=== PATIENT | male | born 1945 | race Caucasian/White ===

== ENCOUNTER 2017-01-16 20:17 | Emergency (ER) | payer MEDICARE ==
[2017-01-16 20:22] VITALS: RESP 18
[2017-01-16] MEDS ORDERED: SODIUM CHLORIDE 0.9% 500 ML IV STA (20:47)
[2017-01-16] MEDS ORDERED: MORPHINE SULFATE 4 MG/ML SYRINGE IV STA (20:47)
[2017-01-16] MEDS ORDERED: ONDANSETRON 4 MG/2 ML VIAL IVP STA (20:47)
[2017-01-16] MEDS ORDERED: RX INFO: IV CONTRAST WAS GIVEN 1 EACH MISC MISCELLANE PRN (21:16)
[2017-01-16 21:17] LABS: Basophils % (A) 1 %; CH 30.3; CHCM 34.6; Eosinophils # (A) 0.1 k/uL (0-0.7); Eosinophils % (A) 3 %; HCT 41.8 % (39.0-53.0); HGB 14.3 gm/dL (13.0-17.5); Luc # (Auto) 0.11; Luc % (Auto) 2; Lymphocytes # (A) 1.3 k/uL (1.0-4.8); Lymphocytes % (A) 26 %; MCHC 34.1 g/dL (31.0-37.0); MCV 87.9 fL (80.0-100.0); Mean Platelet Volume 8.3; Monocytes # (A) 0.3 k/uL (0-1.0); Monocytes % (A) 6 %; Neutrophils # (A) 3.2 k/uL (1.3-7.7); Neutrophils % (A) 63 %; RBC 4.75 m/uL (4.30-5.90); WBC 5.1 k/uL (3.8-10.6); WBC (Perox) 5.21
[2017-01-16 21:26] LABS: ALT 36 U/L (21-72); AST 27 U/L (17-59); Alkaline Phosphatase 71 U/L (38-126); Amylase 43 U/L (30-110); Anion Gap 10 mmol/L; Blood Urea Nitrogen 18 mg/dL (9-20); Calcium 8.9 mg/dL (8.4-10.2); Carbon Dioxide 25 mmol/L (22-30); Chloride 106 mmol/L (98-107); Glucose 127 mg/dL (74-99); Non-African American GFR(MDRD) >60 (>60 ml/min/1.73 sqM); Potassium 3.8 mmol/L (3.5-5.1); Sodium 141 mmol/L (137-145); Total Bilirubin 0.4 mg/dL (0.2-1.3); Total Protein 5.8 g/dL (6.3-8.2)
--- NOTE | 2017-01-16 21:27 | ED ---
General Adult HPI - General Chief complaint: Urogenital Stated complaint: groin pain Time Seen by Provider: 01/16/17 20:31 Source: patient, family Mode of arrival: ambulatory Limitations: no limitations - History of Present Illness Initial comments: 71-year-old male patient presents to emergency department today for complaints of left lower quadrant abdominal pain that started shortly after eating dinner this evening. Patient states that the pain is sharp in nature, is constant, and does not radiate. Patient states that he has urinated and has had a bowel movement since the pain started and both were normal. He denies hematuria, dysuria, urinary urgency or frequency. He denied any constipation, diarrhea, dark, bloody, or black stool. He denies any fever or chills. Patient denies any history of similar pain. - Related Data Home Medications Medication Instructions Recorded Confirmed Atorvastatin [Lipitor] 20 mg PO HS 06/10/15 01/16/17 Valsartan/Hydrochlorothiazide 1 tab PO DAILY 06/10/15 01/16/17 [Diovan Hct 160-12.5 mg Tab] Albuterol Inhaler [Ventolin Hfa 1 - 2 puff INHALATION RT-QID PRN 01/16/17 Inhaler] Aspirin EC [Ecotrin Low Dose] 81 mg PO DAILY 01/16/17 01/16/17 DULoxetine HCL [Cymbalta] 60 mg PO DAILY 01/16/17 01/16/17 Allergies Allergy/AdvReac Type Severity Reaction Status Date / Time Penicillins Allergy Rash/Hives Verified 01/16/17 20:22 Review of Systems ROS Statement: Those systems with pertinent positive or pertinent negative responses have been documented in the HPI. ROS Other: All systems not noted in ROS Statement are negative. Past Medical History Past Medical History: Hyperlipidemia, Hypertension, Sleep Apnea/CPAP/BIPAP Additional Past Medical History / Comment(s): hx fissure History of Any Multi-Drug Resistant Organisms: None Reported Additional Past Surgical History / Comment(s): TURP Past Anesthesia/Blood Transfusion Reactions: No Reported Reaction Past Psychological History: No Psychological Hx Reported Smoking Status: Former smoker Past Alcohol Use History: Occasional Past Drug Use History: None Reported - Past Family History Father Family Medical History: Cancer General Exam Limitations: no limitations General appearance: alert, in no apparent distress Eye exam: Present: normal appearance, PERRL, EOMI. Absent: scleral icterus, conjunctival injection, periorbital swelling ENT exam: Present: normal exam, mucous membranes moist Respiratory exam: Present: normal lung sounds bilaterally. Absent: respiratory distress, wheezes, rales, rhonchi, stridor Cardiovascular Exam: Present: regular rate, normal rhythm, normal heart sounds. Absent: systolic murmur, diastolic murmur, rubs, gallop, clicks GI/Abdominal exam: Present: soft, tenderness (Left lower quadrant), normal bowel sounds. Absent: distended, guarding, rebound, rigid Back exam: Present: normal inspection. Absent: CVA tenderness (R), CVA tenderness (L) Neurological exam: Present: alert, oriented X3, CN II-XII intact Psychiatric exam: Present: normal affect, normal mood Skin exam: Present: warm, dry, intact, normal color. Absent: rash Course Vital Signs 01/16/17 01/16/17 20:20 21:09 Temperature 98.3 F Pulse Rate 78 70 Respiratory 18 18 Rate Blood Pressure 172/93 142/82 O2 Sat by Pulse 97 99 Oximetry Medical Decision Making - Lab Data Result diagrams: 01/16/17 20:59 Lab Results 01/16/17 Range/Units 20:59 WBC 5.1 (3.8-10.6) k/uL RBC 4.75 (4.30-5.90) m/uL Hgb 14.3 (13.0-17.5) gm/dL Hct 41.8 (39.0-53.0) % MCV 87.9 (80.0-100.0) fL MCH 30.0 (25.0-35.0) pg MCHC 34.1 (31.0-37.0) g/dL RDW 14.0 (11.5-15.5) % Plt Count 155 (150-450) k/uL Neutrophils % 63 % Lymphocytes % 26 % Monocytes % 6 % Eosinophils % 3 % Basophils % 1 % Neutrophils # 3.2 (1.3-7.7) k/uL Lymphocytes # 1.3 (1.0-4.8) k/uL Monocytes # 0.3 (0-1.0) k/uL Eosinophils # 0.1 (0-0.7) k/uL Basophils # 0.0 (0-0.2) k/uL Disposition Clinical Impression: Acute appendicitis Disposition: ADMITTED IP TO THIS HOSP Condition: Stable Referrals: Guerrero Eugene MD [Primary Care Provider] - 1-2 days Decision to Admit Reason: Admit from EC Decision Date: 01/16/17 Decision Time: 21:26
[2017-01-16] MEDS ORDERED: HYDROmorphone 1 MG/ML 1 ML SYRINGE IVP STA (21:41)
--- NOTE | 2017-01-16 21:58 | XR ---
EXAMINATION TYPE: XR KUB DATE OF EXAM: 01/16/2017 9:14 PM CLINICAL HISTORY: Abdominal pain not further specified per order. Severe groin pain per patient. TECHNIQUE: 2 upright KUB images of the abdomen are obtained COMPARISON: CT abdomen and pelvis June 15, 2011.. FINDINGS: Scattered gas is seen in non-distended small bowel loops. Gas and fecal material is seen in non-distended colon. Calcification epigastric region correlates with basilar calcified nodule on CT. No pneumoperitoneum is present. There may be small left pleural effusion. Rounded 3.8 cm density lef t lower quadrants of uncertain etiology. Visualized osseous structures are intact. IMPRESSION: Overall nonobstructive bowel gas pattern.
--- NOTE | 2017-01-16 22:17 | CT ---
EXAMINATION TYPE: CT abdomen pelvis w con DATE OF EXAM: 01/16/2017 COMPARISON: CT abdomen and pelvis June 15, 2011 HISTORY: RLQ pain. CT DLP: 855.7 mGycm, Automated Exposure Control for Dose Reduction was Utilized. CONTRAST: CT scan of the abdomen and pelvis is performed without oral and with IV Contrast, patient injected wi th 100 mL of Omnipaque 300. FINDINGS: LUNG BASES: Minimal linear scarring is redemonstrated in both lung bases. LIVER/GB: A few subcentimeter low dense lesions scattered throughout liver particularly left hepatic lobe are too small to further characterize per presumed benign and not significantly changed in appea lloyd from prior CT. PANCREAS: No significant abnormality is seen. SPLEEN: No significant abnormality is seen. ADRENALS: No significant abnormality is seen. KIDNEYS: There is 3 mm calculus in distal left ureter on axial image 78 causing asymmetric mild left- sided pyelocaliectasis and proximal hydroureter as well as delayed excretion from the left kidney. There is 2.8 cm simple appearing cyst medially mid pole level right kidney on axial image 39 increase d in size from prior exam. No right-sided renal calculi or hydronephrosis is evident. Mild left-sided perinephric fat stranding is seen presumed related to obstructing ureter calculus, re nal infection is not entirely excluded. No additional intraluminal calculus in the bladder is seen. BOWEL: Evaluation of bowel is slightly suboptimal secondary to lack of enteric contrast. There is pro minent stomach with air-fluid level suggesting recent meal ingestion. No suspicious small or large lali wel dilatation is seen. Normal-appearing appendix is seen from base of cecum posteriorly. PROSTATE/SEMINAL VESICLES: Prostate gland is heterogeneous and enlarged in size suspicious for BPH, c linical correlation advised. LYMPH NODES: No greater than 1cm abdominal or pelvic lymph nodes are appreciated. OSSEOUS STRUCTURES: Transitional-type vertebra at lumbosacral junction is redemonstrated. OTHER: Moderate calcified plaque of aorta extending into branch vessels. IMPRESSION: There is 3 mm distal left ureter calculus causing mild left-sided hydronephrosis and garrett yed excretion in left kidney.
[2017-01-16] MEDS ORDERED: KETOROLAC 30 MG/ML 1 ML VIAL IVP STA (22:29)
[2017-01-16 22:39] LABS: Appearance,Urine Clear (Clear); Bilirubin,Urine Negative (Negative); Glucose,Urine (UA) Negative (Negative); Ketones,Urine Negative (Negative); Leukocyte Esterase,Urine Negative (Negative); Nitrite,Urine Negative (Negative); Particle Count 267; Protein,Urine Negative (Negative); RBC,Urine 34 /hpf (0-5); Specific Gravity,Urine 1.028 (1.001-1.035); UA Billing (MACRO vs. MICRO) MICRO; Urobilinogen,Urine <2.0 mg/dL (<2.0); WBC,Urine 3 /hpf (0-5)
--- NOTE | 2017-01-16 23:03 | ED ---
Medical Decision Making - Medical Decision Making Previous disposition entered on wrong patient. This patient is a 71-year-old male who presented for left lower quadrant abdominal pain. CT of the abdomen and pelvis showed a 3 mm ureteral calculus with some mild left hydroureter. Urinalysis was positive for moderate RBCs, no evidence of infection. Negative white blood cell count. Patient will be discharged home with Flomax, Lagrange for pain management, and a urine strainer to follow up with urology in 1-2 days for recheck. Patient instructed to return for new, worsening, or concerning symptoms. Patient verbalizes understanding and agrees with this plan. - Lab Data Result diagrams: 01/16/17 20:59 01/16/17 20:59 Lab Results 01/16/17 01/16/17 01/16/17 Range/Units 20:59 20:59 22:30 WBC 5.1 (3.8-10.6) k/uL RBC 4.75 (4.30-5.90) m/uL Hgb 14.3 (13.0-17.5) gm/dL Hct 41.8 (39.0-53.0) % MCV 87.9 (80.0-100.0) fL MCH 30.0 (25.0-35.0) pg MCHC 34.1 (31.0-37.0) g/dL RDW 14.0 (11.5-15.5) % Plt Count 155 (150-450) k/uL Neutrophils % 63 % Lymphocytes % 26 % Monocytes % 6 % Eosinophils % 3 % Basophils % 1 % Neutrophils # 3.2 (1.3-7.7) k/uL Lymphocytes # 1.3 (1.0-4.8) k/uL Monocytes # 0.3 (0-1.0) k/uL Eosinophils # 0.1 (0-0.7) k/uL Basophils # 0.0 (0-0.2) k/uL Sodium 141 (137-145) mmol/L Potassium 3.8 (3.5-5.1) mmol/L Chloride 106 (98-107) mmol/L Carbon Dioxide 25 (22-30) mmol/L Anion Gap 10 mmol/L BUN 18 (9-20) mg/dL Creatinine 1.19 (0.66-1.25) mg/dL Est GFR (MDRD) Af Amer >60 (>60 ml/min/1.73 sqM) Est GFR (MDRD) Non-Af >60 (>60 ml/min/1.73 sqM) Glucose 127 H (74-99) mg/dL Calcium 8.9 (8.4-10.2) mg/dL Total Bilirubin 0.4 (0.2-1.3) mg/dL AST 27 (17-59) U/L ALT 36 (21-72) U/L Alkaline Phosphatase 71 (38-126) U/L Total Protein 5.8 L (6.3-8.2) g/dL Albumin 3.7 (3.5-5.0) g/dL Amylase 43 (30-110) U/L Lipase 132 (23-300) U/L Urine Color Light Yellow Urine Appearance Clear (Clear) Urine pH 7.0 (5.0-8.0) Ur Specific [place] 1.028 (1.001-1.035) Urine Protein Negative (Negative) Urine Glucose (UA) Negative (Negative) Urine Ketones Negative (Negative) Urine Blood Moderate H (Negative) Urine Nitrite Negative (Negative) Urine Bilirubin Negative (Negative) Urine Urobilinogen <2.0 (<2.0) mg/dL Ur Leukocyte Esterase Negative (Negative) Urine RBC 34 H (0-5) /hpf Urine WBC 3 (0-5) /hpf - Radiology Data Radiology results: report reviewed, image reviewed KUB x-ray reveals overall nonobstructive bowel gas pattern. CT of the abdomen and pelvis with contrast shows a 3 mm calculus in the distal left ureter causing asymmetric mild left-sided parietal calyectasis and proximal hydroureteronephrosis as well as delayed excretion from the left kidney. Mild left-sided perinephric fat stranding is seen presumed related to obstructing ureteral calculus, renal infection not excluded. Disposition Clinical Impression: Kidney stone on left side Disposition: HOME SELF-CARE Condition: Stable Instructions: Kidney Stones (ED), How to Strain Your Urine (ED) Additional Instructions: Follow-up with urology in 1-2 days for recheck. Return to emergency department for any new, worsening, or concerning symptoms. Prescriptions: HYDROcodone/APAP 5-325MG [Lagrange 5-325] 1 tab PO Q6HR PRN #20 tab PRN Reason: Pain Tamsulosin [Flomax] 0.4 mg PO DAILY #7 cap Referrals: Guerrero Eugene MD [Primary Care Provider] - 1-2 days Robin Mcmahon MD [STAFF PHYSICIAN] - 1-2 days Time of Disposition: 22:59
[2017-01-16] MEDS ORDERED: TAMSULOSIN 0.4 MG CAP.ER.24H PO STA (23:16)
[2017-01-16 23:21] VITALS: BP 142/77; PULSE 68; TEMP 97.9
== END 2017-01-16 23:21 | disposition home or self-care (01) ==
LOC: EC 20:17
DX: N13.2 Hydronephrosis with renal and ureteral calculous obstruction (principal); I10 Essential (primary) hypertension; E78.5 Hyperlipidemia, unspecified; Z88.0 Allergy status to penicillin; Z79.82 Long term (current) use of aspirin; Z79.899 Other long term (current) drug therapy; Z87.891 Personal history of nicotine dependence
CPT/HCPCS: 99284; 96374; 96375 ×3; 36415; 80053; 82150; 83690; 85025; 81001; 74000; 74177; J2270; J2405; J1885; J1170; Q9967

== ENCOUNTER → 2017-02-21 | Outpatient (CLI) | payer MEDICARE ==
--- NOTE | 2017-02-21 12:26 | US ---
EXAMINATION TYPE: US kidneys/renal and bladder DATE OF EXAM: 02/21/2017 COMPARISON: CT 01/16/2017 CLINICAL HISTORY: N13.30 Hydronephrosis. Follow up left hydronephrosis; patient stated has passed lef t stone since last diagnostic testing EXAM MEASUREMENTS: Right Kidney: 11.0 x 6.3 x 4.9 cm Left Kidney: 11.6 x 4.3 x 4.7 cm Post Void Residual Volume: 56.7 mL Right Kidney: medial mid cortical cyst = 2.8 x 2.3 x 2.6cm; mid pole hyperechoic shadowing focus = 0. 4 x 0.2 x 0.2cm Left Kidney: No hydronephrosis or masses seen Bladder: wnl Bilateral Jets seen: Yes Normal Post Void Residual: No, as is > 50ml. Prostate: multiple ossifications noted within prostate as reported on CT IMPRESSION: 1. Resolution of left-sided hydronephrosis. 2. Nonobstructing right renal calculus.
== END | disposition home or self-care (01) ==
LOC: RADUSWWP 11:05
PROVIDERS: ATTEND Internal Medicine Geriatric Medicine
DX: N20.0 Calculus of kidney (principal)
CPT/HCPCS: 76770

== ENCOUNTER → 2017-03-15 | Outpatient (CLI) | payer MEDICARE ==
--- NOTE | 2017-03-15 16:03 | CT ---
EXAMINATION TYPE: CT abdomen pelvis wo con DATE OF EXAM: 03/15/2017 COMPARISON: 01/16/2017 HISTORY: Hematuria x 3 days. History of renal stones bilaterally. CT DLP: 1004.00 mGycm Examination of the solid and hollow viscera is limited given the lack of contrast. FINDINGS: LUNG BASES: No evidence for nodule. No evidence for infiltrate. LIVER/GB: The gallbladder is unremarkable. No space-occupying hepatic lesion. PANCREAS: No pancreatic mass identified. No inflammatory process seen. SPLEEN: No evidence for splenomegaly. No intrasplenic lesions seen. Splenic granulomas. ADRENALS: No adrenal nodules identified. No evidence for thickening. KIDNEYS: Resolution of previously noted obstructing left UVJ calculus. No evidence for hydronephrosis or obstructing calculus at this time. No evidence for renal calculi. Urinary bladder wall thickening which may reflect cystitis. Stable right renal cyst. BOWEL: Appendix has a normal appearance. No evidence of bowel obstruction. No inflammatory process. Lymph nodes: No evidence for adenopathy greater than 1 cm. Abdominal aorta: Atheromatous changes seen. No evidence for aneurysm. Genital organs: Prostate glandular enlargement and central calcifications. Other: Fat-containing inguinal hernias bilaterally. IMPRESSION: 1. NO EVIDENCE FOR HYDRONEPHROSIS OR NEPHROLITHIASIS. 2. URINARY BLADDER WALL THICKENING MAY REFLECT CYSTITIS.
== END | disposition home or self-care (01) ==
LOC: RADCTMAIN 15:34
PROVIDERS: ATTEND Internal Medicine Geriatric Medicine
DX: N32.89 Other specified disorders of bladder (principal); R31.9 Hematuria, unspecified
CPT/HCPCS: 74176

== ENCOUNTER → 2018-10-18 | Outpatient (CLI) | payer MEDICARE ==
--- NOTE | 2018-10-18 12:17 | CONS ---
CONSULTATION DATE OF SERVICE: 10/18/2018 This 73-year-old gentleman had been evaluated in the sleep center for obstructive sleep apnea-hypopnea syndrome. HISTORY OF PRESENT ILLNESS/SLEEP-WAKE EVALUATION: Patient had been diagnosed with obstructive sleep apnea-hypopnea syndrome in 2004. Sleep study at that time in another institution showed apnea-hypopnea index of 19 and the patient was recommended treatment with CPAP with a pressure of 7 cm of water and he is using equipment since that time every night for the whole night. Presently, his sleep schedule is varying from around 10 p.m. to 2:30 a.m. until 8 or 11 a.m. He denied any significant problem with falling asleep although has TV in bedroom. Sleeps on the side and back position. While using machine, he wakes up 3 times with nocturia. No history of hypnagogic hallucinations, sleep paralysis or cataplexy. [place] Sleepiness Scale is 9. The patient may take one nap during the day. He significantly changed his weight since sleep study in 2004. At that time, his weight was in the range of 175 and then he increase it to around 200 and then he lost to 186 at the present time. PAST MEDICAL HISTORY: Positive for asthma, hypertension, hyperlipidemia, depression, BPH. PAST SURGICAL HISTORY: TURP about 18 years ago. SOCIAL HISTORY: Positive for smoking for 15 pack years, quit more than 25 years ago. Alcohol consumption occasional. FAMILY HISTORY: Hypertension, heart problems, hyperlipidemia, arthritis, asthma, sinus problems, cancer, pneumonia, sleep apnea, lung problems, acid reflux, thyroid problem, . PHYSICAL EXAMINATION: During physical exam, a gentleman without distress. VITAL SIGNS: BP 133/70, HR 68, RR 16, height 5 feet 9 inches, weight 186 pounds, body mass index 27.4, temperature 98.2. Oxygen saturation at room air 97%. HEENT: PERRLA, EOMI. Oropharynx position of soft palate practically normal, but soft palate is extremely close to the posterior pharyngeal wall. Restriction of nasal breathing on the left side. Neck 18 inches in circumference. NECK: Supple, no JVD. Thyroid is not palpable. LUNGS: Clear to percussion and to auscultation. Good air exchange. No wheezing or rhonchi. HEART: S1, S2 regular. No murmurs, gallops, or rubs. ABDOMEN: Soft and nontender. Bowel sounds are present. No organomegaly appreciated. EXTREMITIES: No clubbing or cyanosis. PREPARER SAMPLES AND REPAIRS: Awake, alert, and oriented X3. Cranial nerves 2 to 7 intact. There is no fasciculation or atrophy. noted. No focal deficits observed. IMPRESSION: 1. Obstructive sleep apnea since 2004. The patient continued to use his CPAP equipment every night for the whole night. No sleep study since 2004. Patient changed weight up and down. Awakenings from sleep 3 times with nocturia. Sometimes episodes of excessive daytime sleepiness. 2. Hypertension. 3. Asthma. 4. History of depression. 5. Hyperlipidemia. 6. Benign prostatic hypertrophy, status post a TURP about 18 years ago. PLAN: 1. Patient will continue to use CPAP equipment every night for the whole night. 2. Prescription for all necessary CPAP supplies. 3. We will repeat CPAP titration for re-evaluation of effective CPAP pressure at the present time and to check fitting of the mask. 4. Sleep hygiene with regular time in bed for 7-1/2 to 8 hours. 5. Precautions related to driving. No driving if feeling any sleepiness. Thank you very much for referring this patient for consultation. Sincerely, Vasu Melo MD, PhD, FAASM Diplomat of [employer] Business Consultant of [facility] [place] [email or web address] / MANPREET: [id number] /
== END ==
LOC: SLEEP 10:40
PROVIDERS: ATTEND Internal Medicine
DX: G47.33 Obstructive sleep apnea (adult) (pediatric) (principal); I10 Essential (primary) hypertension; J45.909 Unspecified asthma, uncomplicated; E78.5 Hyperlipidemia, unspecified; F32.9 Major depressive disorder, single episode, unspecified; N40.0 Benign prostatic hyperplasia without lower urinary tract symptoms; Z98.890 Other specified postprocedural states; Z99.89 Dependence on other enabling machines and devices; Z87.891 Personal history of nicotine dependence
CPT/HCPCS: 99211

== ENCOUNTER → 2019-01-10 | Outpatient (CLI) | payer MEDICARE ==
--- NOTE | 2019-01-10 14:58 | SFUN ---
SLEEP CENTER FOLLOW UP NOTE DATE OF SERVICE: 01/10/2019 A 73-year-old gentleman who has been followed in the Sleep Center for treatment of obstructive sleep apnea-hypopnea syndrome. Recently patient had home sleep apnea test and CPAP titration and I discussed results of sleep studies with the patient in details. Subsequently, he received CPAP unit. Today is his first visit after starting to use CPAP equipment. Patient is able to use CPAP equipment most of the night without significant problems related to mask fitting, pressure and humidification. Sometimes he feels it is not enough pressure for him while he is starting to use CPAP, but he is sleeps better and feels better during the day. [place] Sleepiness Scale today is 4. I checked CPAP unit. CPAP pressure is 8 cm of water. The usage is 25/30 nights for the last month and 23/30 nights for more than 4 hours with average usage 7.1 hours per night. Recommended pressure is 8 cm of water, by machine reading pressure is 7.6 cm of water. Leak 17 L/minute which is borderline. Apnea-hypopnea index reading for the last month is 7.5. Patient had several episodes when he has taken arm of his and shaking it, during the night and as it was out dream behavioral and this happened while patient was on treatment with CPAP. MEDICATIONS: Ventolin inhaler, losartan, hydrochlorothiazide, , duloxetine, atorvastatin, aspirin. PHYSICAL EXAM: Patient in no distress. BP 107/67, HR 80, RR 14, weight 180 pounds, temperature 98.4, body mass index 26.5. OROPHARYNX: Low position of soft palate, Mallampati 3-4. Neck Supple, no JVD. Thyroid is not palpable. LUNGS Clear to percussion and to auscultation. Good air exchange. No wheezing or rhonchi. HEART S1, S2 regular. No murmurs, gallops, or rubs. ABDOMEN Soft and nontender. Bowel sounds are present. No organomegaly appreciated. EXTREMITIES No clubbing or cyanosis. DISTRICT ADMINISTRATIVE ASSISTANT Awake, alert, and oriented X3. Cranial nerves 2 to 7 intact. There is no fasciculation or atrophy. noted. No focal deficits observed. IMPRESSION: 1. Obstructive sleep apnea-hypopnea syndrome, apnea-hypopnea index 18.7 by results of home sleep apnea test. Patient demonstrated good compliance with treatment, benefitting from treatment. 2. 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 3. Hypertension. 4. Asthma. 5. History of depression. 6. Hyperlipidemia. 7. Benign prostatic hypertrophy, status post TURP about 18 years ago and repeated about one month ago. PLAN: 1. I will change ramp starting from 5 cm of water to 6 cm of water. 2. I will change CPAP pressure up to 9 cm of water. 3. I will start patient on clonazepam, lowest dose 0.5 mg. We may need to adjust it. 4. Precautions related to any movement during the night, preferably to have Bennett size bed. 5. Sleep hygiene with regular time in bed for 7-1/2 -8 hours. 6. No driving if feeling sleepiness. Thank you very much for allowing me to participate in the management of your patient. Sincerely, Vasu Melo MD, PhD, FAASM Diplomat of [employer] Butt Sawyer of [facility] [place] MMODL / NEGRON: [id number] /
== END | disposition home or self-care (01) ==
LOC: SLEEP 13:56
PROVIDERS: ATTEND Internal Medicine
DX: G47.33 Obstructive sleep apnea (adult) (pediatric) (principal); E78.5 Hyperlipidemia, unspecified; I10 Essential (primary) hypertension; N40.0 Benign prostatic hyperplasia without lower urinary tract symptoms; J45.909 Unspecified asthma, uncomplicated; Z86.59 Personal history of other mental and behavioral disorders; Z79.82 Long term (current) use of aspirin; Z79.899 Other long term (current) drug therapy; Z99.89 Dependence on other enabling machines and devices

== ENCOUNTER → 2019-03-27 | Outpatient (CLI) | payer MEDICARE ==
--- NOTE | 2019-03-27 20:05 | PN ---
PROGRESS NOTE DATE OF SERVICE: 03/27/2019 73-year-old gentleman who has been followed in Sleep Center for treatment of obstructive sleep apnea-hypopnea syndrome. The patient continued to use CPAP equipment every night and he feels better with the CPAP. [place] Sleepiness Scale today is 5, which is normal. I checked his CPAP unit. CPAP pressure is 9 cm of water. Usage is 28/30 nights and 27/30 nights for more than 4 hours with average usage is 7.1 hours. Leak is 29 L/minute. Apnea-hypopnea index for the last month is 5.7, which is better than during the previous visit when it was 7.5 before the pressure was increased. MEDICATIONS: Ventolin inhaler, valsartan, hydrochlorothiazide, duloxetine, atorvastatin, aspirin, clonazepam, sildenafil. PHYSICAL EXAM: Patient in no distress. BP 123/81, HR 63, RR 16, height 5 feet 9 inches, weight 180.4, which is the same as one year ago, temperature 97.7, oxygen saturation at room air 96%. Oropharynx low position of soft palate, Mallampati 3-4. Neck Supple, no JVD. Thyroid is not palpable. LUNGS Clear to percussion and to auscultation. Good air exchange. No wheezing or rhonchi. HEART S1, S2 regular. No murmurs, gallops, or rubs. ABDOMEN Soft and nontender. Bowel sounds are present. No organomegaly appreciated. EXTREMITIES: No clubbing or cyanosis. PRECISION OPTICS TECHNICIAN Awake, alert, and oriented X3. Cranial nerves 2 to 7 intact. There is no fasciculation or atrophy. noted. No focal deficits observed. IMPRESSION: 1. Obstructive sleep apnea-hypopnea syndrome in moderate range. The patient demonstrated great compliance with treatment benefitting from treatment. 2. History of out of dream behavioral episodes during sleep. 3. Hypertension. 4. Asthma. 5. History of depression. 6. Hyperlipidemia. 7. Benign prostatic hypertrophy status post TURP 19 years ago. PLAN: 1. I will increase CPAP up to 10 cm of water. 2. Patient will continue to use CPAP equipment every night for the whole night. 3. Losing weight. 4. Sleep hygiene with regular time in bed for at least 8 hours. 5. No driving if feeling any sleepiness. 6. Prescription for all necessary CPAP supplies. 7. Continue clonazepam 0.5 mg at bedtime. 8. Precautions because patient has episodes of dizziness during the day as well. Thank you very much for allowing me to participate in management of your patient. Sincerely, Vasu Melo MD, PhD, FAASM Diplomat of [employer] Components Engineer of [facility] [place] RAGHAV / MANPREET: [id number] /
== END | disposition home or self-care (01) ==
LOC: SLEEP 14:28
PROVIDERS: ATTEND Internal Medicine
DX: G47.33 Obstructive sleep apnea (adult) (pediatric) (principal); I10 Essential (primary) hypertension; J45.909 Unspecified asthma, uncomplicated; E78.5 Hyperlipidemia, unspecified; N40.0 Benign prostatic hyperplasia without lower urinary tract symptoms; Z86.59 Personal history of other mental and behavioral disorders; Z90.79 Acquired absence of other genital organ(s); Z99.89 Dependence on other enabling machines and devices; Z79.82 Long term (current) use of aspirin; Z79.899 Other long term (current) drug therapy

== ENCOUNTER → 2020-04-23 | Outpatient (CLI) | payer MEDICARE ==
--- NOTE | 2020-04-23 17:17 | SFUN ---
SLEEP CENTER FOLLOW UP NOTE DATE OF SERVICE: 04/23/2020 This patient is a 74-year-old gentleman who has been followed in Sleep Center for treatment of obstructive sleep apnea-hypopnea syndrome. The patient continues to use his CPAP equipment every night for the whole night. Presently while his antidepressant medication has been adjusted his quality of sleep also has slightly changed, but he feels better during the day. I checked his CPAP unit. CPAP pressure is 10 cm of water. Usage is 29/30 nights and 24/30 nights for more than 4 hours. Average usage is 5.6 hours per night. Leak is 6 L/minute, which is normal. Apnea-hypopnea index is 4.9, which is borderline but in normal range; index of 2 related to central apneas. MEDICATIONS: 1. Aripiprazole 5 mg half tablet once a day. 2. Valsartan/hydrochlorothiazide 160/12.5 mg once a day. 3. Alprazolam 0.25 mg up to twice a day for episodes of anxiety. 4. Sildenafil 20 mg max 1 hour before sex. 5. Hydralazine 25 mg 1-2 times a day for blood pressure more than 160/90. 6. Spironolactone 25 mg once a day. 7. Ventolin up to 2 inhalations per 4 hours. 8. Albuterol up to 2 inhalations per 4 hours as necessary. PHYSICAL EXAMINATION: GENERAL: A pleasant patient in no distress. VITAL SIGNS: BP 138/77, HR 82, RR 14, height 5 feet 9-1/2 inches, weight 175.4, BMI 25.4, temperature 98.1, oxygen saturation at room air 98%. HEENT: PERRLA, EOMI. Evaluation of oropharynx showed tongue protrudes midline. Low position of soft palate. Mallampati III to IV. NECK: Supple. No JVD. Thyroid is not palpable. LUNGS: Clear to percussion and to auscultation. Good air exchange. No wheezing or rhonchi. HEART: S1, S2 regular. No murmurs, gallops or rubs. ABDOMEN: Soft, nontender. No organomegaly. Bowel sounds are heard in all four quadrants. EXTREMITIES: No clubbing or cyanosis. RECYCLE WORKER: Awake, alert, and oriented X3. Cranial nerves 2 to 7 intact. There is no fasciculation or atrophy. noted. No focal deficits observed. IMPRESSION: 1. Obstructive sleep apnea-hypopnea syndrome. Patient demonstrated great compliance with treatment, benefitting from treatment. A few episodes of central apneas by reading from the machine. 2. History of [id number] behavioral episodes during sleep. No present complaints. 3. Hypertension. 4. Asthma. 5. History of depression. 6. Hyperlipidemia. 7. Benign prostatic hypertrophy, status post transurethral resection of prostate 20 years ago. PLAN: 1. Patient will continue to use PAP equipment every night for the whole night. 2. Sleep hygiene with regular time in bed for at least 7-1/2 to 8 hours. 3. Precautions related to driving. No driving if feeling sleepiness. 4. I will maintain all necessary prescription for PAP supplies including mask, tube, filters. 5. Watching weight. 6. No driving if feeling sleepiness. 7. Follow-up visit in 6 months or earlier if patient has any problems. Thank you very much for allowing me to participate in the management of your patient. Sincerely, Vasu Melo MD, PhD, FAASM Diplomat of [place] Board [employer] Specialties [place] Board of Internal Medicine Gis Software Developer of [facility] [place] MMODL / IJN: [id number] /
== END | disposition home or self-care (01) ==
LOC: SLEEP 13:45
PROVIDERS: ATTEND Internal Medicine
DX: G47.33 Obstructive sleep apnea (adult) (pediatric) (principal); I10 Essential (primary) hypertension; J45.909 Unspecified asthma, uncomplicated; E78.5 Hyperlipidemia, unspecified; N40.0 Benign prostatic hyperplasia without lower urinary tract symptoms; Z98.890 Other specified postprocedural states; Z86.59 Personal history of other mental and behavioral disorders; Z79.899 Other long term (current) drug therapy; Z79.51 Long term (current) use of inhaled steroids

== ENCOUNTER → 2020-10-15 | Outpatient (CLI) | payer MEDICARE ==
--- NOTE | 2020-10-15 18:44 | SFUN ---
SLEEP CENTER FOLLOW UP NOTE DATE OF SERVICE: 10/15/2020 75-year-old gentleman has been followed in Sleep Center for treatment of obstructive sleep apnea-hypopnea syndrome. The patient continues to use his CPAP equipment every night. His concern is that his apnea-hypopnea index reading from the machine has been increased since I saw him last time. The patient increase his weight in 20 pounds since previous visit. I checked his CPAP unit. Pressure is 10 cm of water, usage 28/30 nights for more than 4 hours, 7.0 hours per night. Leak is 2 L/minute. Apnea-hypopnea index 12.2, during previous visit was 4.9, central apnea-hypopnea index 1.3. [place] Sleepiness Scale today is 7. MEDICATIONS: Losartan, hydrochlorothiazide 160/12.5 mg once a day, Spironolactone 25 mg once a day, hydralazine 25 mg twice a day. PHYSICAL EXAMINATION: GENERAL: Patient in no distress. BP 152/87, HR 68, RR 15, height 5 feet 10 inches, weight 195.8, temperature 98.1. Oxygen saturation at room air 96%. Oropharynx low position of soft palate. Mallampati 3-4. NECK: Supple, no JVD. Thyroid is not palpable. LUNGS: Clear to percussion and to auscultation. Good air exchange. No wheezing or rhonchi. HEART: S1, S2 regular. No murmurs, gallops, or rubs. ABDOMEN: Slightly obese. Soft and nontender. Bowel sounds are present. No organomegaly appreciated. EXTREMITIES: No clubbing or cyanosis. ASSISTANT TEACHING PROFESSOR: Awake, alert, and oriented X3. Cranial nerves 2 to 7 intact. There is no fasciculation or atrophy. noted. No focal deficits observed. IMPRESSION: 1. Obstructive sleep apnea-hypopnea syndrome. The patient demonstrated good compliance with treatment. Apnea-hypopnea index reading on the machine increased to 12.2. 2. History of an episode of behavioral during the night. No present problems. 3. Hypertension. 4. Asthma. 5. History of depression. 6. Hyperlipidemia. 7. benign prostatic hypertrophy status post TURP. 8. Hyperlipidemia. PLAN: 1. I changed regimen in the machine to the automatic range of the pressure 8-14. 2. Patient will continue to use PAP equipment every night for the whole night. 3. Sleep hygiene with regular time in bed for at least 7-1/2 to 8 hours. 4. Precautions related to driving. No driving if feeling sleepiness. 5. I will maintain all necessary prescription for PAP supplies including mask, tube, filters. 6. Watching weight. 7. Follow-up visit in 4 months. Thank you very much for allowing me to participate in management of your patient. Sincerely, Vasu Melo MD, PhD, FAASM Diplomat of [place] [employer] Specialties [employer] Board of Internal Medicine Senior Accountant Analyst of [facility] [place] MMODL / IJN: [id number] /
== END | disposition home or self-care (01) ==

== ENCOUNTER → 2021-02-18 | Outpatient (CLI) | payer MEDICARE ==
--- NOTE | 2021-02-18 16:15 | SFUN ---
SLEEP CENTER FOLLOW UP NOTE DATE OF SERVICE: 02/18/2021 This 75-year-old gentleman has been followed in Sleep Center for treatment of obstructive sleep apnea-hypopnea syndrome. The patient continues to use his CPAP equipment every night and is getting his supplies in time. During the previous visit, because his apnea-hypopnea index was increased to 12.2, I changed the range of the pressure up from 8-14 cm of water. [place] Sleepiness Scale today is 6, which is normal. I checked his CPAP unit. Range of the pressure is 8-14, average pressure 12.7, usage 30/30 nights and 28/30 nights for more than 4 hours with average 8.2 hours per night. Leak is 7 L/minute. Apnea-hypopnea index 5.5, which included central apnea-hypopnea index 1.2, which is significant improvement compared with the previous visit. MEDICATIONS: 1. Venlafaxine 75 mg once a day. 2. Duloxetine 60 mg daily. PHYSICAL EXAMINATION: GENERAL: A pleasant patient without any distress. VITAL SIGNS: BP 129/80, HR 72, RR 15, height 5 feet 10 inches, weight 189, body mass index 27.1, temperature 97.4, oxygen saturation at room air 99%. HEENT: PERRLA, EOMI, evaluation of oropharynx showed tongue protrudes midline. Low position of soft palate, Mallampati III to IV. NECK: Supple, no JVD. Thyroid is not palpable. LUNGS: Clear to percussion and to auscultation. Good air exchange. No wheezing or rhonchi. HEART: S1, S2 regular. No murmurs, gallops, or rubs. ABDOMEN: Soft and nontender. Bowel sounds are present. No organomegaly appreciated. EXTREMITIES: No clubbing or cyanosis. GUIDE ALPINE: Awake, alert, and oriented X3. Cranial nerves 2 to 7 intact. There is no fasciculation or atrophy. noted. No focal deficits observed. IMPRESSION: 1. Obstructive sleep apnea-hypopnea syndrome. Patient demonstrated great compliance with treatment, improvements of respiration after changing the pressure in the machine during previous visit, benefitting from treatment. 2. 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 No recent episodes. 3. Hypertension. 4. Asthma. 5. History of depression. 6. Hyperlipidemia. 7. Benign prostatic hypertrophy. 8. Status post TURP in 2016. PLAN: 1. Patient will continue to use PAP equipment every night for the whole night. 2. Sleep hygiene with regular time in bed for at least 7-1/2 to 8 hours. 3. Precautions related to driving. No driving if feeling sleepiness. 4. I will maintain all necessary prescription for PAP supplies including mask, tube, filters. 5. Watching weight. 6. Follow-up visit in 6 months or earlier if patient has any problems. Thank you very much for allowing me to participate in the management of your patient. Sincerely, Vasu Melo MD, PhD, FAASM Diplomat of [place] Board of Medical Specialties Sleep Medicine Board of [place] Board of Internal Medicine Technical Training Coordinator of [facility] [place] MMODL / IJN: [id number] /
== END ==
LOC: SLEEP 11:34
PROVIDERS: ATTEND Internal Medicine
DX: G47.33 Obstructive sleep apnea (adult) (pediatric) (principal); I10 Essential (primary) hypertension; J45.909 Unspecified asthma, uncomplicated; F32.9 Major depressive disorder, single episode, unspecified; E78.5 Hyperlipidemia, unspecified; N40.0 Benign prostatic hyperplasia without lower urinary tract symptoms; Z90.79 Acquired absence of other genital organ(s); Z79.899 Other long term (current) drug therapy; Z88.0 Allergy status to penicillin; Z87.891 Personal history of nicotine dependence

== ENCOUNTER → 2021-08-19 | Outpatient (CLI) | payer MEDICARE ==
--- NOTE | 2021-08-19 14:27 | SFUN ---
SLEEP CENTER FOLLOW UP NOTE DATE OF SERVICE: 08/19/2021 76-year-old gentleman has been followed in Sleep Center for treatment of obstructive sleep apnea-hypopnea syndrome. The patient continues to use his CPAP equipment every night. Sleeps pretty well. No snoring. Getting his supplies in time. [place] Sleepiness Scale today is 5, which is normal. I checked CPAP unit. It is in automatic regimen. Range of the pressure 8-14, average pressure 13.1, usage is 28/30 nights and 26/30 nights for more than 4 hours, average 8.3 hours per night. Leak is only 2 L/minute. It is absolutely normal. Apnea-hypopnea index slightly increased to 8.1, which including central apneas, 1.7. MEDICATIONS: Venlafaxine 75 mg once a day, valsartan hydrochlorothiazide 160-12 once a day, Rosuvastatin 10 mg once a day, if necessary for blood pressure, anxiety and pain spironolactone 25 mg once a day, hydralazine 25 mg one tablet twice a day, alprazolam 0.25 mg once a day as necessary, acetaminophen, codeine 1 tablet up to q.6 hours for pain, baclofen 10 mg 1 tablets up to 2 times a day. PHYSICAL EXAMINATION: GENERAL: Patient in no distress. BP 107/63, HR 74, RR 16, weight 186.8, height 5 feet 10 inches, temperature 96.9, oxygen saturation at room air 97%. Oropharynx: Low position of soft palate, Mallampati 3-4. NECK: Supple, no JVD. Thyroid is not palpable. LUNGS: Clear to percussion and to auscultation. Good air exchange. No wheezing or rhonchi. HEART: S1, S2 regular. No murmurs, gallops, or rubs. ABDOMEN: Soft and nontender. Bowel sounds are present. No organomegaly appreciated. EXTREMITIES: No clubbing or cyanosis. SIGNALS ANALYST: Awake, alert, and oriented X3. Cranial nerves 2 to 7 intact. There is no fasciculation or atrophy. noted. No focal deficits observed. IMPRESSION: 1. Obstructive sleep apnea-hypopnea syndrome. Patient demonstrated good compliance with treatment. Apnea-hypopnea index again slightly increased. 2. History of REM sleep behavioral disorder episodes in the past. No recent episodes. 3. Hypertension. 4. Asthma. 5. History of depression. 6. Hyperlipidemia. 7. Benign prostatic hypertrophy. 8. Status post TURP in 2016. PLAN: 1. I will change regimen of CPAP to the range 8-15 cm of water. 2. Patient will continue to use PAP equipment every night for the whole night. 3. Sleep hygiene with regular time in bed for at least 7-1/2 to 8 hours. 4. Precautions related to driving. No driving if feeling sleepiness. 5. I will maintain all necessary prescription for PAP supplies including mask, tube, filters. 6. Watching weight. 7. Follow-up visit in 6 months or earlier if patient has any problems. Thank you very much for allowing me to participate in the management of your patient. Sincerely, Vasu Melo MD, PhD, FAASM Diplomat of [place] Board of Medical Specialties Sleep Medicine Board of [place] Board of Internal Medicine Hawk Missile System Crewmember of [facility] [place] MMPOOJAL / NEGRON: [id number] /
== END ==
LOC: SLEEP 13:06
PROVIDERS: ATTEND Internal Medicine
DX: G47.33 Obstructive sleep apnea (adult) (pediatric) (principal); I10 Essential (primary) hypertension; J45.909 Unspecified asthma, uncomplicated; F32.A Depression, unspecified; E78.5 Hyperlipidemia, unspecified; N40.0 Benign prostatic hyperplasia without lower urinary tract symptoms; Z98.890 Other specified postprocedural states; Z99.89 Dependence on other enabling machines and devices; Z88.0 Allergy status to penicillin; Z87.891 Personal history of nicotine dependence

== ENCOUNTER → 2022-03-10 | Outpatient (CLI) | payer MEDICARE ==
--- NOTE | 2022-03-10 13:24 | P.PN ---
Subjective DATE: 03/10/2022 FOLLOW UP VISIT. Patient with obstructive sleep apnea hypopnea syndrome return to sleep center for follow-up visit. Information from previous visit have been reviewed. Patient is using PAP equipment every night for the whole night, getting PAP supplies in time. The patient does not have significant problems with the mask, PAP unit and humidification. [place] sleepiness scale is for. I checked PAP unit. PAP unit pressure 8-15, average 13.6 cm H2O. Usage is 90 % for more then 4 hours, average 6.6 hours per night. Leak is 8 l/m, which is in acceptable range. Apnea Hypopnea Index is 7.7, which is slightly increased . MEDICATIONS:1. Valsartan/hydrochlorothiazide 65321 0.5 mg once a day 2. Rosuvastatin 10 mg once a day 3. Venlafaxine 75 mg once a day 4. Pantoprazole 40 mg as needed During physical exam: GENERAL: A pleasant patient without any distress. VITAL SIGNS: BP 109/64, HR 12, RR 14, weight 179.4, temperature 97.0, oxygen saturation at room air 97 % . HEENT: PERRLA, EOMI.low position of soft palate, Mallapati 3-4 . NECK: Supple. No JVD. LUNGS: Clear to percussion and to auscultation. Good air exchange. No wheezing or rhonchi. HEART: S1, S2 regular. ABDOMEN: Soft and nontender.[] EXTREMITIES: No clubbing or cyanosis. BRAKESHOE REPAIRER: Awake, alert, and oriented x3. No focal deficit. Impressions: 1. Obstructive sleep apnea-hypopnea syndrome. Patient demonstrated great compliance with treatment, benefiting from treatment. 2. Hypertension. 3. History of REM sleep behavior disorder, no recent problems. 4. Asthma. 5. Hyperlipidemia. 6. History of depression. 7. Benign prostatic hypertrophy. 8. Status post TURP in 2016. Plan: 1. Continue using PAP equipment every night for the whole night. 2. To change air filter at least 1-2 times per month. 3. PAP unit should stay lower then position of the head. 4. Advised patient to remove all remaining water from humidifier canister daily and make it dry after each usage. Refill canister with fresh distilled water before each usage. 5. Sleep hygiene with regular time in bed for at least 8 hours. 6. Precautions related to driving. No driving if feel any sleepiness. 7. I will maintain prescription for PAP supplies including mask, tube, filters. 8. Follow up visit in 6 months or earlier if patient has any problems. 9. Watching weight. Thank you very much for allowing me to participate in the management of your patient. Vasu Melo MD, PhD, FAASM. Diplomat of [place] Board of Sleep Medicine, Sleep Medicine Board by [place] Board of Internal Medicine Fixed Income Trading Vice President of [facility] [place]
== END ==
LOC: SLEEP 13:01
PROVIDERS: ATTEND Internal Medicine
DX: G47.33 Obstructive sleep apnea (adult) (pediatric) (principal); I10 Essential (primary) hypertension; J45.909 Unspecified asthma, uncomplicated; E78.5 Hyperlipidemia, unspecified; F32.A Depression, unspecified; N40.0 Benign prostatic hyperplasia without lower urinary tract symptoms; Z99.89 Dependence on other enabling machines and devices; Z98.890 Other specified postprocedural states; Z88.0 Allergy status to penicillin; Z87.891 Personal history of nicotine dependence

== ENCOUNTER → 2022-09-21 | Outpatient (CLI) | payer MEDICARE ==
--- NOTE | 2022-09-21 14:26 | P.PN ---
Subjective DATE: 09/21/2022 FOLLOW UP VISIT. Patient with obstructive sleep apnea hypopnea syndrome return to sleep center for follow-up visit. Information from previous visit have been reviewed. Patient is using PAP equipment every night for the whole night, getting PAP supplies in time. The patient does not have significant problems with the mask, PAP unit and humidification. [place] sleepiness scale is 5, which is perfect. I checked information from PAP unit and discussed it with patient. PAP unit pressure 8-16, average 14.8 cm H2O. Usage is 98% and 90 % for more then 4 hours, average 7 hours per night. Leak is 5 l/m, which is in acceptable range. Apnea Hypopnea Index slightly increased to 8.4. MEDICATIONS:1. Venlafaxine 75 mg once a day 2. Valsartan/hydrochlorothiazide 160-12.5 mg once a day 3. Rosuvastatin 10 mg once a day 4. Alprazolam 0.25 mg twice a day 5. Albuterol 6. Ventolin 7. Pantoprazole During physical exam: GENERAL: A pleasant patient without any distress. VITAL SIGNS: BP 157/92, HR 73, RR 16, weight 185.6, temperature 97.7, oxygen saturation at room air 97 % . HEENT: PERRLA, EOMI.low position of soft palate, Mallapati 3-4 . NECK: Supple. No JVD. LUNGS: Clear to percussion and to auscultation. Good air exchange. No wheezing or rhonchi. HEART: S1, S2 regular. ABDOMEN: Soft and nontender.[] EXTREMITIES: No clubbing or cyanosis. CHAIRMAN OF THE BOARD: Awake, alert, and oriented x3. No focal deficit. Impressions: 1. Obstructive sleep apnea-hypopnea syndrome. Patient demonstrated great compliance with treatment, benefiting from treatment. Apnea-hypopnea index increased to 8.4. 2. Hypertension. 3. Asthma. 4. History of REM sleep behavior disorder, no present problems. 5. Hyperlipidemia. 6. BPH. Status post TURP. 7. History of depression. Plan: 1. Continue using PAP equipment every night for the whole night. I increased pressure in CPAP unit to the range 818 centimeters of water. 2. To change air filter at least 1-2 times per month. 3. PAP unit should stay lower then position of the head. 4. Advised patient to remove all remaining water from humidifier canister daily and make it dry after each usage. Refill canister with fresh distilled water before each usage. 5. Sleep hygiene with regular time in bed for at least 8 hours. 6. Precautions related to driving. No driving if feel any sleepiness. 7. I will maintain prescription for PAP supplies including mask, tube, filters. 8. Follow up visit in 6 months or earlier if patient has any problems. 9. Watching weight. Thank you very much for allowing me to participate in the management of your patient. Vasu Melo MD, PhD, FAASM. Diplomat of [place] Board of Sleep Medicine, Sleep Medicine Board by [place] Board of Internal Medicine Forest Examiner of [facility] [place]
== END ==
LOC: SLEEP 14:00
PROVIDERS: ATTEND Internal Medicine
DX: G47.33 Obstructive sleep apnea (adult) (pediatric) (principal); I10 Essential (primary) hypertension; J45.909 Unspecified asthma, uncomplicated; E78.5 Hyperlipidemia, unspecified; F32.A Depression, unspecified; N40.0 Benign prostatic hyperplasia without lower urinary tract symptoms; Z90.79 Acquired absence of other genital organ(s); Z79.899 Other long term (current) drug therapy; Z99.89 Dependence on other enabling machines and devices; Z88.0 Allergy status to penicillin; Z87.891 Personal history of nicotine dependence
CPT/HCPCS: 99212

== ENCOUNTER → 2023-05-24 | Outpatient (CLI) | payer MEDICARE ==
--- NOTE | 2023-05-24 14:25 | P.PN ---
Subjective DATE: 05/24/2023 FOLLOW UP VISIT. Patient with obstructive sleep apnea hypopnea syndrome return to sleep center for follow-up visit. Information from previous visit have been reviewed. Patient is using PAP equipment every night for the whole night, getting PAP supplies in time. The patient does not have significant problems with the mask, PAP unit and humidification. [place] sleepiness scale is 4, which is normal. I checked information from PAP unit and discussed it with patient in details. PAP unit pressure 8-18, average 14.9 cm H2O. Usage is 100 % for more then 4 hours, average 9 hours per night. Leak is 6.7 l/m, which is in acceptable range. Apnea Hypopnea Index is 4.5, which is normal, reduced after pressure was sligh tly increased during previous visit. MEDICATIONS:1.. Venlafaxine 75 mg once a day 2. Valsartan-hydrochlorothiazide 160-12.5 mg once a day 3. Rosuvastatin 10 mg once a day 4. Alprazolam 0.25 mg twice a day as needed 5. Hydralazine 25 mg twice a day 6. Spironolactone 25 mg once a day 7. Albuterol 8. Pantoprazole 40 mg once a day During physical exam: GENERAL: A pleasant patient without any distress. VITAL SIGNS: BP 155/92, HR 70, RR 14, weight 187.6, temperature 97.8, oxygen saturation at room air 98 % . HEENT: PERRLA, EOMI.low position of soft palate, Mallapati 3-4 . NECK: Supple. No JVD. LUNGS: Clear to percussion and to auscultation. Good air exchange. No wheezing or rhonchi. HEART: S1, S2 regular. ABDOMEN: Soft and nontender.[] EXTREMITIES: No clubbing or cyanosis. TELEPHONE APPOINTMENT CLERK: Awake, alert, and oriented x3. No focal deficit. Impressions: 1. Obstructive sleep apnea-hypopnea syndrome. Patient demonstrated great compliance with treatment, benefiting from treatment. 2. Hypertension. 3. Asthma. 4. Hyperlipidemia. 5. History of REM sleep behavior disorder, no problems at the present time. 6. History of depression. 7. BPH, status post TURP. Plan: 1. Continue using PAP equipment every night for the whole night. 2. To change air filter at least 1-2 times per month. 3. PAP unit should stay lower then position of the head. 4. Advised patient to remove all remaining water from humidifier canister daily and make it dry after each usage. Refill canister with fresh distilled water before each usage. 5. Sleep hygiene with regular time in bed for at least 8 hours. 6. Precautions related to driving. No driving if feel any sleepiness. 7. I will maintain prescription for PAP supplies including mask, tube, filters. 8. Watching weight. 9. Follow up visit in 6 months or earlier if patient has any problems. Thank you very much for allowing me to participate in the management of your patient. Vasu Melo MD, PhD, FAASM. Diplomat of [place] Board of Sleep Medicine, Sleep Medicine Board by [place] Board of Internal Medicine Shell Sieve Operator of [facility] [place]
== END ==
LOC: 3 N SLEEP 13:54
PROVIDERS: ATTEND Internal Medicine
DX: G47.33 Obstructive sleep apnea (adult) (pediatric) (principal); I10 Essential (primary) hypertension; J45.909 Unspecified asthma, uncomplicated; F32.A Depression, unspecified; E78.5 Hyperlipidemia, unspecified; N40.0 Benign prostatic hyperplasia without lower urinary tract symptoms; Z79.899 Other long term (current) drug therapy; Z90.79 Acquired absence of other genital organ(s); Z99.89 Dependence on other enabling machines and devices; Z88.0 Allergy status to penicillin; Z79.82 Long term (current) use of aspirin; Z87.891 Personal history of nicotine dependence
CPT/HCPCS: 99212

== ENCOUNTER → 2024-01-10 | Outpatient (CLI) | payer MEDICARE ==
[2024-01-10 14:11] VITALS: BP 152/84; PULSE 68; RESP 16; TEMP 97.5
--- NOTE | 2024-01-10 14:40 | P.PROGSL ---
Subjective DATE: 01/10/2024 FOLLOW UP VISIT. Patient with obstructive sleep apnea hypopnea syndrome return to sleep center for follow-up visit. Information from previous visit have been reviewed. Patient is using PAP equipment every night for the whole night, getting PAP supplies in time. The patient does not have significant problems with the mask, PAP unit and humidification. [place] sleepiness scale is 4, which is normal. I checked information from PAP unit. PAP unit pressure 8-18, average 13.6 cm H2O. Usage is 99% for more then 4 hours, average 8 hours per night. Leak is 24 l/m, which is in acceptable range. Apnea Hypopnea Index is 4.2, which is normal. MEDICATIONS have been reviewed, please see below. During physical exam: GENERAL: A pleasant patient without any distress. VITAL SIGNS: Please see below, weight is 182 lbs. HEENT: PERRLA, EOMI.low position of soft palate, Mallapati 34. NECK: Supple. No JVD. LUNGS: Clear to percussion and to auscultation. Good air exchange. No wheezing or rhonchi. HEART: S1, S2 regular. ABDOMEN: Soft and nontender.[] EXTREMITIES: No clubbing or cyanosis. INVENTORY TAKER: Awake, alert, and oriented x3. No focal deficit. Impressions: 1. Obstructive sleep apnea-hypopnea syndrome. Patient demonstrated great compliance with treatment, benefiting from treatment. 2. Hypertension. 3. Hyperlipidemia. 4. Asthma. 5. History of REM sleep behavioral disorder in the past, no problems at the present time. 6. History of depression. 7. Status post TURP for BPH. Plan: 1. Continue using PAP equipment every night for the whole night. 2. Sleep hygiene with regular time in bed for at least 7.5-8 hours 3. PAP unit should stay lower then position of the head. 4. Advised patient to remove all remaining water from humidifier canister daily and make it dry after each usage. Refill canister with fresh distilled water before each usage. 5. Watching weight. 6. Precautions related to driving. No driving if feel any sleepiness. 7. I will maintain prescription for PAP supplies including mask, tube, filters. 8. Follow up visit in 6 months or earlier if patient has any problems. Thank you very much for allowing me to participate in the management of your patient. Vasu Melo MD, PhD, FAASM. Diplomat of [place] Board of Sleep Medicine, Sleep Medicine Board by [place] Board of Internal Medicine Radio Electrician of [facility] [place] Objective - Vital Signs Vital Signs: Vital Signs Temp 97.5 F L 01/10/24 14:10 Pulse 68 01/10/24 14:10 Resp 16 01/10/24 14:10 BP 152/84 01/10/24 14:10 Pulse Ox 98 01/10/24 14:10 FiO2 Intake & Output 01/09/24 01/10/24 01/10/24 18:59 06:59 18:59 Weight 82.554 kg Home Medications: Home Medications Medication Instructions Recorded Confirmed Type Atorvastatin [Lipitor] 20 mg PO HS 06/10/15 01/16/17 History Valsartan/Hydrochlorothiazide 1 tab PO DAILY 06/10/15 01/16/17 History [Diovan Hct 160-12.5 mg Tab] Albuterol Inhaler [Ventolin Hfa 1 - 2 puff INHALATION RT-QID PRN 01/16/17 01/10/24 History Inhaler] Aspirin EC [Ecotrin Low Dose] 81 mg PO DAILY 01/16/17 01/10/24 History DULoxetine HCL [Cymbalta] 60 mg PO DAILY 01/16/17 01/16/17 History HYDROcodone/APAP 5-325MG [[place] 1 tab PO Q6HR PRN #20 tab 01/16/17 Rx 5-325] Tamsulosin [Flomax] 0.4 mg PO DAILY #7 cap 01/16/17 01/10/24 Rx Amlodipine Besylate/Valsartan 1 each PO DAILY 01/10/24 01/10/24 History [Amlodipine Besylate/Valsartan 5-160 mg] Rosuvastatin [Crestor] 10 mg PO DAILY 01/10/24 01/10/24 History Venlafaxine HCl ER [Effexor Xr] 75 mg PO DAILY 01/10/24 01/10/24 History
== END ==
LOC: 3 N SLEEP 13:59
PROVIDERS: ATTEND Internal Medicine
DX: G47.33 Obstructive sleep apnea (adult) (pediatric) (principal); I10 Essential (primary) hypertension; E78.5 Hyperlipidemia, unspecified; J45.909 Unspecified asthma, uncomplicated; F32.A Depression, unspecified; Z87.39 Personal history of other diseases of the musculoskeletal system and connective tissue; Z98.890 Other specified postprocedural states; Z99.89 Dependence on other enabling machines and devices; Z79.899 Other long term (current) drug therapy; Z88.0 Allergy status to penicillin; Z87.891 Personal history of nicotine dependence
CPT/HCPCS: 99212

== ENCOUNTER → 2024-02-28 | Outpatient (CLI) | payer MEDICARE ==
--- NOTE | 2024-03-01 16:07 | MR ---
EXAMINATION TYPE: MR brain wo/w con DATE OF EXAM: 02/28/2024 1:41 PM CLINICAL INDICATION: Male, 78 years old with history of R41.3 MEMORY LOSS; PHH, Memory loss COMPARISON: None TECHNIQUE: Multi planar, multi sequence imaging was performed through the brain including: T1, T2, In version recovery, susceptibility weighted imaging and gradient echo imaging and Diffusion weighted im aging. The patient was then given intravenous contrast and multi planar, T1 fat-saturation images wer e obtained. IV Contrast: 7 cc Gadavist FINDINGS: Mild cerebral atrophy with proportional dilation of ventricular system. White matter changes in the medial aspect of the right frontal lobe near a CSF attenuating nonenhancing lesion possibly represent ing arachnoid cyst measuring 20 x 13 mm. Susceptibility artifact within the right frontal lobe in thi s region is noted. Diffusion-weighted imaging shows no evidence of restricted diffusion to suggest ac tribe/subacute infarct. Intracranial arterial flow voids are maintained. Midline structures show no abn ormality. Scattered foci of high T2 signal intensity are seen within the periventricular white matter . The susceptibility weighted images do not reveal any evidence for micro-hemorrhage. After administr ation of gadolinium, no abnormal enhancement is seen. The bone marrow signal is within normal limits. Paranasal sinuses and mastoid air cells: No significant paranasal sinus disease. Visualized orbits: Bilateral aphakia IMPRESSION: 1. White matter changes in the right frontal lobe which are asymmetric compared to the remainder of t he brain. There is some evidence of hemosiderin deposition on susceptibility weighted imaging. Correl ate with any history of prior trauma/pain plate. There is adjacent CSF attenuating probable arachnoid cyst along the falx. Otherwise, no of intra-axial mass, acute/subacute infarct, or abnormal enhancem ent. 2. Nonspecific white matter changes, likely related to small vessel ischemic disease.
== END | disposition home or self-care (01) ==
LOC: RADMRIMAIN 12:58
PROVIDERS: ATTEND Internal Medicine Geriatric Medicine
DX: R41.3 Other amnesia (principal); H27.03 Aphakia, bilateral
CPT/HCPCS: 70553; A9585

== ENCOUNTER → 2024-09-11 | Outpatient (CLI) | payer MEDICARE ==
[2024-09-11 17:09] VITALS: BP 144/86; PULSE 72; RESP 16; TEMP 97.9
--- NOTE | 2024-09-11 17:22 | P.PROGSL ---
Subjective DATE: 2024 FOLLOW UP VISIT. Patient with obstructive sleep apnea hypopnea syndrome return to sleep center for follow-up visit. Information from previous visit have been reviewed. Patient is using PAP equipment every night for the whole night, getting PAP supplies in time. The patient does not have significant problems with the mask, PAP unit and humidification. [place] sleepiness scale is 5. I checked information from PAP unit. PAP unit pressure 8-18, average 13.8 cm H2O. Usage is 100% for more then 4 hours, average 8.6 hours per night. Leak is 1 l/m, which is in perfect range. Apnea Hypopnea Index is 0.9, which is normal. MEDICATIONS have been reviewed, please see below. During physical exam: GENERAL: A pleasant patient without any distress. VITAL SIGNS: Please see below, weight is 192 lbs. HEENT: PERRLA, EOMI.low position of soft palate, Mallapati 34. NECK: Supple. No JVD. LUNGS: Clear to percussion and to auscultation. Good air exchange. No wheezing or rhonchi. HEART: S1, S2 regular. ABDOMEN: Soft and nontender.[] EXTREMITIES: No clubbing or cyanosis. BATT PACKER: Awake, alert, and oriented x3. No focal deficit. Impressions: 1. Obstructive sleep apnea-hypopnea syndrome. Patient demonstrated great compliance with treatment, benefiting from treatment. 2. Hypertension. 3. Hyperlipidemia. 4. Asthma. 5. 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 6. Status post TURP for BPH. 7. History of depression. Plan: 1. Continue using PAP equipment every night for the whole night. 2. Sleep hygiene with regular time in bed for at least 7.5-8 hours 3. PAP unit should stay lower then position of the head. 4. Advised patient to remove all remaining water from humidifier canister daily and make it dry after each usage. Refill canister with fresh distilled water before each usage. 5. Watching weight, patient increased weight on 10 pounds comparing with previous visit. 6. Precautions related to driving. No driving if feel any sleepiness. 7. I will maintain prescription for PAP supplies including mask, tube, filters. 8. Follow up visit in 8 months or earlier if patient has any problems. Thank you very much for allowing me to participate in the management of your patient. Vasu Melo MD, PhD, FAASM. Diplomat of [employer], Sleep Medicine Board by [employer] [facility] [place] Objective - Vital Signs Vital Signs: Vital Signs Temp 97.9 F 09/11/24 17:08 Pulse 72 09/11/24 17:08 Resp 16 09/11/24 17:08 BP 144/86 09/11/24 17:08 Pulse Ox 97 09/11/24 17:08 FiO2 Intake & Output 09/10/24 09/11/24 09/11/24 18:59 06:59 18:59 Weight 87.09 kg Home Medications: Home Medications Medication Instructions Recorded Confirmed Type Atorvastatin [Lipitor] 20 mg PO HS 06/10/15 01/16/17 History Valsartan/Hydrochlorothiazide 1 tab PO DAILY 06/10/15 01/16/17 History [Diovan Hct 160-12.5 mg Tab] Albuterol Inhaler [Ventolin Hfa 1 - 2 puff INHALATION RT-QID PRN 01/16/17 01/10/24 History Inhaler] Aspirin EC [Ecotrin Low Dose] 81 mg PO DAILY 01/16/17 01/10/24 History DULoxetine HCL [Cymbalta] 60 mg PO DAILY 01/16/17 01/16/17 History HYDROcodone/APAP 5-325MG [[place] 1 tab PO Q6HR PRN #20 tab 01/16/17 Rx 5-325] Tamsulosin [Flomax] 0.4 mg PO DAILY #7 cap 01/16/17 01/10/24 Rx Amlodipine Besylate/Valsartan 1 each PO DAILY 01/10/24 01/10/24 History [Amlodipine Besylate/Valsartan 5-160 mg] Rosuvastatin [Crestor] 10 mg PO DAILY 01/10/24 01/10/24 History Venlafaxine HCl ER [Effexor Xr] 75 mg PO DAILY 01/10/24 01/10/24 History
== END ==
LOC: 3 N SLEEP 16:43
PROVIDERS: ATTEND Internal Medicine
DX: G47.33 Obstructive sleep apnea (adult) (pediatric) (principal); I10 Essential (primary) hypertension; E78.5 Hyperlipidemia, unspecified; J45.909 Unspecified asthma, uncomplicated; Z86.59 Personal history of other mental and behavioral disorders; Z90.79 Acquired absence of other genital organ(s); Z88.0 Allergy status to penicillin; Z87.891 Personal history of nicotine dependence
CPT/HCPCS: 99212